=== PATIENT | female | born 1980 ===

== ENCOUNTER 2024-10-03 06:00 | Day surgery (SDC) | payer OTHER ==
[2024-09-27 13:06] VITALS: BP 118/84
[2024-09-27 15:31] LABS: RH POSITIVE
[~2024-10-03] VITALS: Ht 167.6 cm; Wt 82.6 kg
[~2024-10-03 06:00] MED LIST: CYMBALTA60 MG PO; OMEPRAZOLE40 MG PO; PEPCID AC10 MG PO; SYNTHROID75 MCG; VITAMIN D310 MCG/1 M; ZETIA10 MG PO
[2024-10-03] MEDS ORDERED: CEFAZOLIN SODIUM 1,000 MG VIAL ONE (16:06)
[2024-10-03] MEDS ORDERED: POVIDONE-IODINE 118 ML BOTT TOP ONE (16:06)
[2024-10-03] MEDS ORDERED: METRONIDAZOLE/SODIUM CHLORIDE 500 MG/100 ML PIGGYBACK IV ONE (16:06)
[2024-10-03] MEDS ORDERED: KETOROLAC TROMETHAMINE 30 MG VIAL IV STA (17:21)
[2024-10-03] MEDS ORDERED: MORPHINE SULFATE 4 MG/ML VIAL IV ONE (18:35)
[2024-10-03] MEDS ORDERED: KETOROLAC TROMETHAMINE 30 MG VIAL ONE (19:09)
== END 2024-10-03 19:40 | disposition home or self-care (01) ==
LOC: CIR.AMB 06:00
PROVIDERS: ATTEND Obstetrics & Gynecology Gynecologic Oncology
DX: N83.291 Other ovarian cyst, right side (principal); E11.9 Type 2 diabetes mellitus without complications; E78.00 Pure hypercholesterolemia, unspecified; E03.8 Other specified hypothyroidism; K21.9 Gastro-esophageal reflux disease without esophagitis; R59.0 Localized enlarged lymph nodes

== ENCOUNTER 2025-05-15 10:00 | Day surgery (SDC) | payer OTHER ==
[2025-05-12 13:44] VITALS: BP 128/82
[2025-05-12 15:09] LABS: COVID-19 AG NEGATIVE (NEGATIVE)
[~2025-05-15] VITALS: Ht 167.6 cm; Wt 77.1 kg
[2025-05-15] MEDS ORDERED: METRONIDAZOLE/SODIUM CHLORIDE 500 MG/100 ML PIGGYBACK IV ONE (11:32)
[2025-05-15] MEDS ORDERED: CEFAZOLIN SODIUM 1,000 MG VIAL ONE (11:33)
[2025-05-15] MEDS ORDERED: POVIDONE-IODINE 118 ML BOTT TOP ONE (12:48)
[2025-05-15] MEDS ORDERED: SURGIFLO APPLICATOR 1 EACH APPL TOP ONE (14:24)
[2025-05-15] MEDS ORDERED: HEMOSTATIC MATRIX 1 KIT KIT TOP ONE (14:24)
[2025-05-15] MEDS ORDERED: KETOROLAC TROMETHAMINE 30 MG VIAL IV ONE (15:15)
[2025-05-15] MEDS ORDERED: KETOROLAC TROMETHAMINE 30 MG VIAL ONE (18:31)
== END 2025-05-15 19:30 | disposition home or self-care (01) ==
LOC: CIR.AMB 10:00
PROVIDERS: ATTEND Obstetrics & Gynecology Gynecologic Oncology
DX: N83.292 Other ovarian cyst, left side (principal); C56.1 Malignant neoplasm of right ovary; R59.0 Localized enlarged lymph nodes